=== PATIENT | female | born 1990 | race Caucasian/White ===

== ENCOUNTER 2017-12-13 21:11 | Emergency (ER) | payer SELFPAY ==
[~2017-12-13] VITALS: Ht 160 cm; Wt 102.6 kg
[2017-12-13 21:47] VITALS: BP 179/100; Ht 160 cm; Wt 102.6 kg
== END 2017-12-13 21:55 | disposition left against medical advice (07) ==
LOC: ED 21:11
DX: Z53.21 Procedure and treatment not carried out due to patient leaving prior to being seen by health care provider (principal)